=== PATIENT | male | born 1950 | race Caucasian/White ===

== ENCOUNTER → 2019-10-06 10:16 | Outpatient (BNVA) | payer MEDICARE, SELFPAY | PROVIDERS: Family Provider Internal Medicine; PCP Internal Medicine; Visit Provider Nurse Practitioner | DX: M54.16 Radiculopathy, lumbar region (principal); M79.671 Pain in right foot; F17.210 Nicotine dependence, cigarettes, uncomplicated; Z79.891 Long term (current) use of opiate analgesic | CPT/HCPCS: 99213; 99214 ==

== ENCOUNTER → 2020-04-14 08:18 | Outpatient (BNVA) | payer MEDICARE, SELFPAY | PROVIDERS: Family Provider Internal Medicine; PCP Internal Medicine; Visit Provider Anesthesiology | DX: G89.29 Other chronic pain (principal); M54.42 Lumbago with sciatica, left side; M54.41 Lumbago with sciatica, right side; M54.16 Radiculopathy, lumbar region; M54.9 Dorsalgia, unspecified; M43.16 Spondylolisthesis, lumbar region; Z71.6 Tobacco abuse counseling; F17.210 Nicotine dependence, cigarettes, uncomplicated; Z79.891 Long term (current) use of opiate analgesic | CPT/HCPCS: 99214 ==

== ENCOUNTER → 2020-06-13 08:01 | Outpatient (BNVA) | payer MEDICARE, SELFPAY | PROVIDERS: Family Provider Internal Medicine; PCP Internal Medicine; Visit Provider Anesthesiology | DX: G89.29 Other chronic pain (principal); M54.16 Radiculopathy, lumbar region; M43.16 Spondylolisthesis, lumbar region; M54.9 Dorsalgia, unspecified; F17.210 Nicotine dependence, cigarettes, uncomplicated; Z79.891 Long term (current) use of opiate analgesic; Z71.6 Tobacco abuse counseling | CPT/HCPCS: 99214 ==

== ENCOUNTER → 2020-08-09 09:03 | Outpatient (BNVA) | payer MEDICARE, SELFPAY | PROVIDERS: Family Provider Internal Medicine; PCP Internal Medicine; Visit Provider Anesthesiology | DX: G89.29 Other chronic pain (principal); M54.16 Radiculopathy, lumbar region; M43.16 Spondylolisthesis, lumbar region; M54.9 Dorsalgia, unspecified; F17.210 Nicotine dependence, cigarettes, uncomplicated; Z71.6 Tobacco abuse counseling; Z79.891 Long term (current) use of opiate analgesic | CPT/HCPCS: 99213; 99214 ==

== ENCOUNTER → 2020-10-11 08:15 | Outpatient (BNVA) | payer MEDICARE, SELFPAY | PROVIDERS: Family Provider Internal Medicine; PCP Internal Medicine; Visit Provider Anesthesiology | DX: G89.29 Other chronic pain (principal); M54.16 Radiculopathy, lumbar region; M43.16 Spondylolisthesis, lumbar region; M54.9 Dorsalgia, unspecified; F17.290 Nicotine dependence, other tobacco product, uncomplicated; Z79.891 Long term (current) use of opiate analgesic | CPT/HCPCS: 99213 ==

== ENCOUNTER → 2020-11-30 09:43 | Outpatient (BNVA) | payer MEDICARE, SELFPAY | PROVIDERS: Family Provider Internal Medicine; PCP Internal Medicine; Visit Provider Nurse Practitioner | DX: G89.29 Other chronic pain (principal); M54.16 Radiculopathy, lumbar region; M43.16 Spondylolisthesis, lumbar region; G47.00 Insomnia, unspecified; F17.210 Nicotine dependence, cigarettes, uncomplicated; Z79.891 Long term (current) use of opiate analgesic | CPT/HCPCS: 99213 ==

== ENCOUNTER 2021-01-11 11:23 | Outpatient (CLI) | payer MEDICARE, SELFPAY ==
--- NOTE | 2021-01-11 11:29 | XR_ITS ---
WS: [id number] KUB, AP view, 01/11/2021 Clinical Data: LOW BACK PAIN Comparison: KUB, 01/03/2016. Findings: No abnormal intraabdominal masses or calcifications are seen. There is no dilatated small bowel or ev idence of obstruction. There is air in the small bowel and the colon. There are clips in the right upper quadrant from a cho lecystectomy. There are phleboliths on the right side of the true pelvis. There is an old L2 compress ion fracture. XR/XR KUB [id number] Impression: Moderate generalized ileus.
== END 2021-01-11 11:24 | disposition home or self-care (01) ==
PROVIDERS: PCP Internal Medicine; Visit Provider Nurse Practitioner Family
DX: R39.9 Unspecified symptoms and signs involving the genitourinary system (principal); M54.5 Low back pain; K56.7 Ileus, unspecified
CPT/HCPCS: 74018

== ENCOUNTER 2021-01-22 08:24 | Outpatient (CLI) | payer MEDICARE, SELFPAY ==
--- NOTE | 2021-01-22 08:32 | CT_ITS ---
WS: [id number] CT ABDOMEN AND PELVIS NONCONTRAST HISTORY: ILEUS TECHNIQUE: Imaging performed through the abdomen and pelvis. Coronal and sagittal reformats are submi tted. All CT scans at [facility] use at least one of these dose optimization techniques: automated exposure control; mA and/or kV adjustment per patient size (includes targeted exams where d ose is matched to clinical indication); or iterative reconstruction. DLP: 874.64 mGycm COMPARISON: 12/16/2018 Lower thorax: Lung bases are clear. Visualized heart is normal. No hiatal hernia. Liver: Normal size liver. No mass or bile duct dilatation. Gallbladder: Prior cholecystectomy. Pancreas: Mild diffuse pancreatic atrophy. Normal size duct. No mass or pancreatitis. Spleen: Normal size spleen with granulomata. Adrenal glands: Normal. No mass. Right kidney: Normal size kidney. No obstruction identified. Mild perinephric stranding. Exophytic 17 mm mass from the mid lateral kidney slightly increased in size since 2019. Cannot be further evaluat ed on this nonenhanced study. There were additional mass is associated with the RIGHT kidney on a yolette or contrast evaluation but these are not as well seen today. Left kidney: Scattered cortical masses in the lower pole. Seen on the prior study without significant increase in size. Mild perinephric stranding. Aorta: Mild atherosclerosis abdominal aorta with no aneurysm. Atherosclerotic plaque extends into the common iliac arteries. No free fluid, intraperitoneal air or significant lymphadenopathy. GI tract: No obstruction. No evidence for an ileus. There are numerous diverticula in the sigmoid col on. No acute inflammation. No abscess or free fluid. No free air. Normal appendix. Abdominal wall: Negative. No hernia. Pelvis: Mild prostate gland enlargement. Urinary bladder is only minimally distended. No adenopathy o r free fluid. Osseous structures: Remote L2 compression fracture by 30%. Severe narrowing of the L1-2 disc space. L 5 anterolisthesis by 4 mm[address] is [address]. [address]/CT abdomen pelvis wo con [id number] IMPRESSION: 1. No evidence for ileus or GI tract obstruction. 2. Prior cholecystectomy. 3. Bilateral renal masses cannot be further evaluated without IV contrast but very similar in size to the prior study of 12/16/2018. 4. Sigmoid diverticulosis without diverticulitis. 5. Remote L2 compression fracture.
[2021-01-22] MEDS: iohexol 300 mg/mL 50 mL Btl PO (08:34)
== END 2021-01-22 08:25 | disposition home or self-care (01) ==
PROVIDERS: PCP Internal Medicine; Visit Provider Nurse Practitioner Family
DX: K56.7 Ileus, unspecified (principal); S32.029A Unspecified fracture of second lumbar vertebra, initial encounter for closed fracture; X58.XXXA Exposure to other specified factors, initial encounter; K57.30 Diverticulosis of large intestine without perforation or abscess without bleeding; N28.89 Other specified disorders of kidney and ureter; Z90.49 Acquired absence of other specified parts of digestive tract
CPT/HCPCS: 74176; Q9967

== ENCOUNTER 2021-02-02 09:54 | Outpatient (CLI) | payer MEDICARE, SELFPAY ==
--- NOTE | 2021-02-02 10:05 | CT_ITS ---
WS: [id number] CT ABDOMEN AND PELVIS NONCONTRAST HISTORY: ILEUS TECHNIQUE: Imaging performed through the abdomen and pelvis. Coronal and sagittal reformats are submi tted. All CT scans at [facility] use at least one of these dose optimization techniques: automated exposure control; mA and/or kV adjustment per patient size (includes targeted exams where d ose is matched to clinical indication); or iterative reconstruction. DLP: 959.2 mGycm COMPARISON: 01/22/2021 and 12/16/2018 Lower thorax: Lung bases are clear. Visualized heart is normal. No hiatal hernia. Liver: Normal size liver. No mass or bile duct dilatation. Gallbladder: Prior cholecystectomy. Pancreas: Mild fatty replacement. Spleen: Normal. Adrenal glands: Normal. No mass. Right kidney: Mild perinephric stranding with no obstruction. Stable appearance of the masses extendi ng exophytic from the kidney. Left kidney: Mild perinephric stranding. No obstruction. No change in the exophytic masses. Aorta: Mild atherosclerosis abdominal aorta with no aneurysm. No free fluid, intraperitoneal air or significant lymphadenopathy. GI tract: No GI tract obstruction. No ileus identified. No evidence for appendicitis. There are numer ous diverticula mild wall thickening. The sigmoid colon. No definite diverticulitis. Abdominal wall: Negative. No hernia. Pelvis: No free fluid or adenopathy. Inguinal canals are patent bilaterally. Mild enlargement of the prostate gland. Osseous structures: Remote L2 compression fracture. Severe disc space narrowing at L1-2. L5 anterolis thesis. No change in appearance of the spine. Mild narrowing of the joint spaces of the hips. CT/CT abdomen pelvis wo con [id number] IMPRESSION: 1. No ileus. 2. Sigmoid diverticulosis and wall thickening. Mild chronic narrowing of the s igmoid lumen. No evidence for acute diverticulitis. 3. Perinephric stranding with no change in appearance of the renal masses. 4. Prior cholecystectomy.
[2021-02-02] MEDS: iohexol 300 mg/mL 50 mL Btl PO (11:16)
== END 2021-02-02 09:55 | disposition home or self-care (01) ==
LOC: RADWPI 09:57
PROVIDERS: PCP Internal Medicine; Visit Provider Nurse Practitioner Family
DX: K56.7 Ileus, unspecified (principal); K57.30 Diverticulosis of large intestine without perforation or abscess without bleeding; Z90.49 Acquired absence of other specified parts of digestive tract
CPT/HCPCS: 74176; Q9967

== ENCOUNTER → 2021-02-06 09:25 | Outpatient (BNVA) | payer MEDICARE, SELFPAY | PROVIDERS: PCP Internal Medicine; Visit Provider Anesthesiology | DX: G89.29 Other chronic pain (principal); M54.16 Radiculopathy, lumbar region; M43.16 Spondylolisthesis, lumbar region; M54.9 Dorsalgia, unspecified; F17.210 Nicotine dependence, cigarettes, uncomplicated; Z79.891 Long term (current) use of opiate analgesic | CPT/HCPCS: 99213 ==

== ENCOUNTER → 2021-02-16 10:20 | Outpatient (BNVA) | payer MEDICARE, SELFPAY | PROVIDERS: PCP Internal Medicine; Referring Provider Nurse Practitioner Family; Visit Provider Urology | DX: R97.20 Elevated prostate specific antigen [PSA] (principal); N40.1 Benign prostatic hyperplasia with lower urinary tract symptoms; N40.0 Benign prostatic hyperplasia without lower urinary tract symptoms; R30.0 Dysuria | CPT/HCPCS: 81003; 84153 ==

== ENCOUNTER 2021-02-21 08:54 | Outpatient (CLI) | payer MEDICARE, SELFPAY ==
--- NOTE | 2021-02-21 09:00 | US_ITS ---
WS: [id number] RENAL ULTRASOUND HISTORY: RENAL MASS COMPARISON: 09/26/[address] 02/02/2021 TECHNIQUE: 2-D and color Doppler imaging of the kidney submitted. Right kidney: 10.6 cm x 6.5 cm x 7.5 cm. Normal size kidney. No cortical thinning. No solid mass identified. There are several cysts associate d with the lower pole of the RIGHT kidney. The largest measures 2.1 x 1.8 x 1.9 cm. This compares in size and location to the enhanced CT from 12/16/2018. Left kidney: 14.1 cm x 5.3 cm x 6.3 cm. Normal size kidney with no cortical thinning or hydronephrosis. There are several scattered small cys ts within the renal parenchyma. No solid mass identified. Largest cyst is exophytic from the mid kidn ey measuring 1.6 x 1.0 x 1.3 cm. Aorta: Normal. Urinary Bladder: Normal distention. Prostate gland is enlarged encroaching into the urinary bladder. Prostate measures 3.8 x 5.0 x 4.1 cm . US/US renal BI* [id number] IMPRESSION: 1. Bilateral renal cysts with no solid mass identified. Very similar in appear ance to the prior CT from 12/16/2018. 2. Enlarged prostate gland.
== END 2021-02-21 08:55 | disposition home or self-care (01) ==
LOC: RAD 08:58
PROVIDERS: PCP Internal Medicine; Visit Provider Internal Medicine
DX: N28.89 Other specified disorders of kidney and ureter (principal); N40.0 Benign prostatic hyperplasia without lower urinary tract symptoms; Q61.02 Congenital multiple renal cysts
CPT/HCPCS: 76770

== ENCOUNTER → 2021-04-05 09:24 | Outpatient (BNVA) | payer MEDICARE, SELFPAY | PROVIDERS: PCP Internal Medicine; Visit Provider Anesthesiology | DX: G89.29 Other chronic pain (principal); M54.16 Radiculopathy, lumbar region; M43.16 Spondylolisthesis, lumbar region; F17.290 Nicotine dependence, other tobacco product, uncomplicated; Z79.891 Long term (current) use of opiate analgesic | CPT/HCPCS: 99213 ==

== ENCOUNTER 2021-04-23 06:24 | Emergency (ER) | payer MEDICARE, SELFPAY ==
[2021-04-23 06:37] VITALS: BP 167/110; PULSE 119; RESP 18; TEMP 36.6; O2SAT 97; BMI 27.6
[2021-04-23 06:42] VITALS: BP 129/86; PULSE 113; O2SAT 96
[2021-04-23 07:12] VITALS: BP 129/86; PULSE 111; O2SAT 96
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
[2021-04-23 07:50] LABS: Basophils % 0.5 %; Eosinophils % 0.5 %; Hematocrit 46.8 % (42.0-52.0); Hemoglobin 15.8 g/dL (11.7-16.6); Lymphocytes # 1.7 10^3/uL (0.8-4.8); Lymphocytes % 25.3 %; Mean Corpuscular HGB Conc 33.8 g/dL (30.0-36.0); Mean Corpuscular Hemoglobin 30.3 pg (28.0-34.0); Mean Corpuscular Volume 89.8 fl (80-94); Mean Platelet Volume 9.1 fL (7.4-10.4); Monocytes # 0.5 10^3/uL (0.2-0.9); Neutrophils # 4.35 10^3/uL (1.8-7.7); Neutrophils % 65.2 %; Nucleated Red Blood Cells % 0 %; Platelet Count 207 10^3/cmm (130-400); Red Blood Count 5.21 10^6/uL (4.1-5.3); Red Cell Distribution Width 12.4 % (12.1-15.1); White Blood Count 6.7 10^3/uL (4.0-10.0)
[2021-04-23 08:01] VITALS: BP 139/94; PULSE 96; O2SAT 94
[2021-04-23 08:08] LABS: Alanine Aminotransferase 13 U/L (0-41); Albumin Level 4.2 g/dL (3.5-5.2); Alkaline Phosphatase 108 IU/L (40-130); Anion Gap 13.2 (5-19); Aspartate Amino Transferase 15 U/L (0-40); Blood Urea Nitrogen 11 mg/dL (8-23); Calcium 9.2 mg/dL (8.5-10.5); Carbon Dioxide 26 mmol/L (22-29); Chloride 104 mmol/L (98-107); Globulin 2.6 g/dL (1.3-4.6); Glucose 115 mg/dL (65-115); Lipase 17 U/L (13-60); Osmolality Calculated 290 mOsm/kg (285-295); Potassium 3.2 mmol/L (3.5-5.1); Sodium 140 mmol/L (136-145); Total Bilirubin 0.7 mg/dL (0.15-1.2); Total Protein 6.8 g/dL (6.6-8.7)
[2021-04-23 08:25] LABS: Add Urine Microscopic? YES; Bilirubin Urine Neg (Negative); Blood Urine Trace (Negative); Glucose Urine UA Norm (Normal); Ketones Urine Negative (Negative); Leukocyte Esterase Urine Negative (Negative); Nitrate Urine Negative (Negative); Protein Urine Neg (Negative); Urine Appearance Clear (CLEAR); Urine Color Yellow (Yellow); Urobilinogen Urine Norm (Negative); pH Urine 5 (5-7)
[2021-04-23 08:26] LABS: Add Urine Culture? No; Bacteria Urine TRACE /hpf; Mucus Urine 1+ /hpf; RBC Urine RARE /hpf (0-2)
[2021-04-23 08:56] VITALS: BP 170/119; PULSE 97; O2SAT 98
== END 2021-04-23 08:59 | disposition home or self-care (01) ==
PROVIDERS: Emergency Provider Family Medicine
DX: K57.92 Diverticulitis of intestine, part unspecified, without perforation or abscess without bleeding (principal); I10 Essential (primary) hypertension; F17.290 Nicotine dependence, other tobacco product, uncomplicated
CPT/HCPCS: 80053; 81001; 83690; 85025; 99282

== ENCOUNTER → 2021-04-27 14:15 | Outpatient (BNVA) | payer MEDICARE, SELFPAY | PROVIDERS: PCP Internal Medicine; Visit Provider Anesthesiology | DX: G89.29 Other chronic pain (principal); M54.16 Radiculopathy, lumbar region; M43.16 Spondylolisthesis, lumbar region; F17.210 Nicotine dependence, cigarettes, uncomplicated; Z79.891 Long term (current) use of opiate analgesic | CPT/HCPCS: 99213 ==

== ENCOUNTER → 2021-07-04 08:41 | Outpatient (BNVA) | payer MEDICARE, SELFPAY | PROVIDERS: PCP Internal Medicine; Visit Provider Anesthesiology | DX: G89.29 Other chronic pain (principal); M54.16 Radiculopathy, lumbar region; M43.16 Spondylolisthesis, lumbar region; Z79.891 Long term (current) use of opiate analgesic; Z87.891 Personal history of nicotine dependence | CPT/HCPCS: 99213 ==

== ENCOUNTER → 2021-08-09 12:30 | Outpatient (BNVA) | payer MEDICARE, SELFPAY | PROVIDERS: PCP Internal Medicine; Visit Provider Nurse Practitioner Family | DX: Z20.822 Contact with and (suspected) exposure to COVID-19 (principal) | CPT/HCPCS: 87426; 87635 ==

== ENCOUNTER 2021-08-14 07:57 | Outpatient (CLI) | payer MEDICARE, SELFPAY ==
[2021-08-14 08:07] VITALS: BMI 28.8
[2021-08-14 08:20] VITALS: BP 142/93; PULSE 92; RESP 18; TEMP 38; O2SAT 93
[2021-08-14 09:25] VITALS: BP 141/92; PULSE 83; RESP 18; TEMP 36.9; O2SAT 92
[2021-08-14 10:24] VITALS: BP 136/83; PULSE 82; RESP 18; TEMP 36.9; O2SAT 91
== END 2021-08-14 07:58 | disposition home or self-care (01) ==
LOC: OPS 08:02
PROVIDERS: PCP Internal Medicine; Visit Provider Nurse Practitioner Family
DX: U07.1 COVID-19 (principal)
CPT/HCPCS: 96365

== ENCOUNTER 2021-08-16 13:23 | Outpatient (CLI) | payer MEDICARE, SELFPAY ==
--- NOTE | 2021-08-16 13:41 | XRR_ITS ---
PROCEDURE INFORMATION: Exam: XR Chest Exam date and time: 08/16/2021 1:41 PM Age: 70 years old Clinical indication: Cough; Prior surgery; Surgery type: Gb; Patient HX: Covid +, still in quarantine. Bronchitits, infusion x 2 days TECHNIQUE: Imaging protocol: XR of the chest. Views: 2 views. COMPARISON: CT Chest/Abdomen/Pelvis w IV* 12/16/2018 4:29 PM FINDINGS: Lungs: Emphysematous changes. Patchy bilateral mid to lower lung field atelectasis versus minimal infiltrate. Pleural spaces: Unremarkable. No pleural effusion. No pneumothorax. Heart/Mediastinum: Unremarkable. No cardiomegaly. Bones/joints: Unremarkable. XR/XR chest 2V* [id number] IMPRESSION: 1. Emphysematous changes. 2. Patchy bilateral mid to lower lung field atelectasis versus minimal infiltrate.
== END 2021-08-16 13:24 | disposition home or self-care (01) ==
PROVIDERS: PCP Internal Medicine; Visit Provider Nurse Practitioner Family
DX: R05.9 Cough, unspecified (principal); U07.1 COVID-19
CPT/HCPCS: 71046

== ENCOUNTER → 2021-09-05 08:15 | Outpatient (BNVA) | payer MEDICARE, SELFPAY | PROVIDERS: PCP Internal Medicine; Visit Provider Anesthesiology | DX: G89.29 Other chronic pain (principal); M54.16 Radiculopathy, lumbar region; M43.16 Spondylolisthesis, lumbar region; F17.290 Nicotine dependence, other tobacco product, uncomplicated; Z79.891 Long term (current) use of opiate analgesic | CPT/HCPCS: 99214 ==

== ENCOUNTER → 2021-09-13 14:22 | Outpatient (BNVA) | payer MEDICARE, SELFPAY | PROVIDERS: PCP Internal Medicine; Visit Provider Nurse Practitioner Family | DX: Z20.822 Contact with and (suspected) exposure to COVID-19 (principal) | CPT/HCPCS: 87635 ==

== ENCOUNTER 2022-11-15 03:49 | Emergency (ER) | payer MEDICARE, SELFPAY ==
[2022-11-15 03:53] VITALS: BP 183/100; PULSE 116; RESP 20; TEMP 36.8; O2SAT 97; BMI 28.8
[2022-11-15 03:57] VITALS: BP 150/105; PULSE 86; RESP 13; O2SAT 91
--- NOTE | 2022-11-15 03:57 | ECG_ITS ---
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
--- NOTE | 2022-11-15 04:01 | CTR_ITS ---
PROCEDURE INFORMATION: Exam: CT Abdomen And Pelvis Without Contrast Exam date and time: 11/15/2022 4:13 AM Age: 72 years old Clinical indication: Abdominal pain; Generalized; Prior surgery; Surgery type: Gb; Patient HX: Worsening diffuse abd pain over last four days. TECHNIQUE: Imaging protocol: Computed tomography of the abdomen and pelvis without contrast. Radiation optimization: All CT scans at this facility use at least one of these dose optimization techniques: automated exposure control; mA and/or kV adjustment per patient size (includes targeted exams where dose is matched to clinical indication); or iterative reconstruction. REPORTING DATA: Count of CT and Cardiac NM exams in prior 12 months: This patient has received 0 known CTs and 0 known cardiac nuclear medicine studies in the 12 months prior to the current study. COMPARISON: CT abdomen pelvis wo con [id number] 02/02/2021 11:37 AM RADIATION DOSE METRICS: Total DLP (mGy-cm): 878.93 FINDINGS: Liver: No focal intrahepatic lesions are seen. Gallbladder and bile ducts: The gallbladder has been removed. Pancreas: Moderately atrophic/fatty replaced. No intraparenchymal lesions are seen. No ductal dilation. Spleen: No intraparenchymal lesions are seen. No splenomegaly. Adrenal glands: Normal. No mass. Kidneys and ureters: The kidneys are mildly atrophic in there is mild nonspecific perinephric fat stranding. Bilateral low attenuating cystic structures measuring up to 1.9 cm on the right and 2.3 cm on the left likely represent benign cysts. Left renal exophytic intermediate attenuating lesion on series 3, image 48 measuring up to 1.5 cm in diameter likely represents a benign complex cyst however is incompletely and suboptimally evaluated on this noncontrast exam. No hydronephrosis. Stomach and bowel: No pathologic bowel dilatation. No obstruction. Colonic diverticula, subtle/minimal pericolonic induration/stranding in the right lower quadrant, cannot exclude early changes of diverticulitis. Appendix: No evidence of appendicitis. Intraperitoneal space: No free air. No abnormal walled-off fluid collection. Vasculature: Atheromatous changes within the visualized portion of the aorta and its major branching vessels are within normal limits of variation for the patient's age. No abdominal aortic aneurysm. Lymph nodes: No pathologically enlarged lymph nodes. Urinary bladder: Unremarkable as visualized. Reproductive: Unremarkable as visualized. Bones/joints: No acute fracture. Moderate degenerative changes of the partially imaged spine with sequelae of remote insult/trauma involving the L1 and L2 vertebral bodies. Soft tissues: Small bilateral fat containing inguinal hernias. Well-circumscribed low attenuating lesion within the subcutaneous tissues of the posterior lower thorax on series 3, image 12 measuring up to approximately 3.5 cm x 2.5 cm x 4.0 cm, finding is most compatible with a benign sebaceous cyst. Very small fat containing umbilical hernia. CT/CT abdomen pelvis wo con [id number] IMPRESSION: 1. For colonic diverticula, subtle/minimal pericolonic induration/stranding in the right lower quadrant, cannot exclude early changes of diverticulitis. 2. Other multiple chronic/incidental findings as described above.
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
[2022-11-15 04:19] LABS: Basophils % 0.3 %; Eosinophils # 0.1 10^3/uL (0.0-0.8); Eosinophils % 0.6 %; Hematocrit 48.4 % (42.0-52.0); Hemoglobin 16.2 g/dL (11.7-16.6); Lymphocytes # 3.5 10^3/uL (0.8-4.8); Lymphocytes % 38.2 %; Mean Corpuscular HGB Conc 33.5 g/dL (30.0-36.0); Mean Corpuscular Volume 89.6 fl (80-94); Mean Platelet Volume 9.5 fL (7.4-10.4); Monocytes # 0.8 10^3/uL (0.2-0.9); Monocytes % 8.6 %; Neutrophils # 4.71 10^3/uL (1.8-7.7); Neutrophils % 52.1 %; Nucleated Red Blood Cells % 0 %; Platelet Count 203 10^3/cmm (130-400); Red Cell Distribution Width 12.6 % (12.1-15.1); White Blood Count 9.1 10^3/uL (4.0-10.0)
[2022-11-15 04:39] LABS: Alanine Aminotransferase 12 U/L (0-41); Albumin Level 4.1 g/dL (3.5-5.2); Alkaline Phosphatase 93 U/L (40-130); Aspartate Amino Transferase 20 U/L (0-40); Blood Urea Nitrogen 12 mg/dL (8-23); Calcium 9.4 mg/dL (8.5-10.5); Carbon Dioxide 24 mmol/L (22-29); Chloride 107 mmol/L (98-107); Globulin 3.1 g/dL (1.3-4.6); Glucose 128 mg/dL (65-115); Lipase 24 U/L (13-60); Osmolality Calculated 303 mOsm/kg (285-295); Sodium 146 mmol/L (136-145); Total Bilirubin 0.8 mg/dL (0.15-1.2); Total Protein 7.2 g/dL (6.6-8.7)
[2022-11-15 04:39] LABS: Glucose Point of Care 122 mg/dL (70-110)
[2022-11-15 04:41] LABS: Anion Gap 18.2 (5-19); Potassium 3.2 mmol/L (3.5-5.1)
[2022-11-15] MEDS: sodium chloride 0.9% 1,000 ML 999 ML IV (04:41)
[2022-11-15 06:27] VITALS: BP 178/119; PULSE 97; RESP 14; O2SAT 95
--- NOTE | 2022-11-15 07:03 | PC.NURSE ---
WHILE AT BEDSIDE PT IS RESTING IN BED IN NAD. PT IS AWAKE ALERT AND ANSWERING QUESTIONS APPROPRIATELY. PT DOES NOT VERBALIZE ANY NEEDS.
[2022-11-15 07:06] VITALS: BP 188/122; PULSE 92; RESP 14; O2SAT 93
[2022-11-15 08:14] VITALS: BP 163/108; PULSE 98; RESP 16; O2SAT 91
[2022-11-15 08:14] LABS: Add Urine Microscopic? NO; Charge for UA Resulting for Rev
[2022-11-15 08:52] LABS: Urine Appearance Clear (CLEAR); Urine Color Yellow (Yellow); pH Urine 5 (5-7)
[2022-11-15 08:53] LABS: Bilirubin Urine Neg (Negative); Blood Urine Neg (Negative); Glucose Urine UA Norm (Normal); Ketones Urine 2+ (Negative); Leukocyte Esterase Urine Negative (Negative); Nitrate Urine Negative (Negative); Protein Urine Neg (Negative); Specific Gravity, Urine 1.025 (1.005-1.030); Urobilinogen Urine Norm (Negative)
== END 2022-11-15 08:15 | disposition home or self-care (01) ==
PROVIDERS: Emergency Medicine; Emergency Provider Family Medicine; PCP Internal Medicine
DX: K57.92 Diverticulitis of intestine, part unspecified, without perforation or abscess without bleeding (principal); I10 Essential (primary) hypertension; F17.210 Nicotine dependence, cigarettes, uncomplicated
CPT/HCPCS: 36416; 74176; 80053; 81003; 82962; 83690; 85025; 93005; 96360; 96361; 99285; J7030

== ENCOUNTER → 2023-06-03 07:47 | Outpatient (BNVA) | payer MEDICARE, SELFPAY | PROVIDERS: PCP Internal Medicine; Visit Provider Surgery | DX: L98.9 Disorder of the skin and subcutaneous tissue, unspecified (principal) | CPT/HCPCS: 99203 ==

== ENCOUNTER 2023-07-28 05:33 | Day surgery (SDC) | payer MEDICARE, SELFPAY ==
[2023-07-28] VITALS (9 sets, daily range): BP systolic 114–164; BP diastolic 74–98; PULSE 58–94; RESP 12–18; TEMP 36.2–36.8; O2SAT 91–96; BMI 28.8
[2023-07-28] MEDS: sodium chloride 0.9% 1,000 ML 30 ML IV (06:44)
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
[2023-07-28] MEDS: ceFAZolin 2,000 MG in sodium chloride 0.9% (plus) 50 ML 100 MG IV (07:02)
[2023-07-28] MEDS: lidocaine-epi 2% 20 mL INJ INJECTION (07:18)
[2023-07-28] MEDS: neomycin-poly-bacitracin oint 28 gm 1 APPLIC TOPICAL (07:42)
--- NOTE | 2023-07-28 07:43 | P.OP_ITS ---
Operative Report Date of procedure: July 28, 2023 Pre-op diagnosis: Right groin skin lesion Post-op diagnosis: same Procedure done: Excision of right groin skin lesion Implants: none Specimens removed/disposition: Elliptical excision of right groin skin lesion Surgeon: Sae Kumar DO Anesthesia: General and Local Estimated blood loss (mL): 5 Complications: None apparent Brief History: This is a very pleasant 72-year-old gentleman with an enlarging skin lesion of his right groin causing pain and itching. He desired excision. The risk and benefits were explained and documented. Procedure: Patient was wheeled operative room placed on the OR table in the supine position. The right groin was inspected prepped and draped in usual sterile fashion. A timeout was performed. All present were in agreement. 2% lidocaine with epinephrine was used to anesthetize the skin around the lesion of the right groin. The lesion measured 9 cm in greatest diameter and was raised and brown. An elliptical excision measuring 10 cm in length was performed over the mass using a 10 blade scalpel. Dissection was carried down through the dermis with electrocautery. The lesion was then removed with electrocautery. Hemostasis achieved electrocautery. The dermis was approximated with 3-0 Vicryl in an interrupted fashion. Skin was closed with 3-0 nylon in a simple interrupted and running fashion. Sterile bandage was applied. Patient tolerated procedure yobani vee
--- NOTE | 2023-07-28 08:50 | ANE.PACU2 ---
Inpatient post-anesthesia follow up: Airway intact: Yes Vital signs: Temperature 97.3 F Pulse Rate 73 Respiratory Rate 18 Blood Pressure 149/86 Pulse Oximetry 93 Oxygen Delivery Me thod Room Air Oxygen Flow Rate Fraction of Inspir ed Oxygen Hydration adequate: Yes Nausea and vomiting: No Pain level: 1 Mental status: Baseline
== END 2023-07-28 08:52 | disposition home or self-care (01) ==
PROVIDERS: PCP Internal Medicine; Visit Provider Surgery
PROC: (CPT 11406; principal; 2023-07-28 07:00)
DX: L82.1 Other seborrheic keratosis (principal); I10 Essential (primary) hypertension; K21.9 Gastro-esophageal reflux disease without esophagitis; N40.1 Benign prostatic hyperplasia with lower urinary tract symptoms; N13.8 Other obstructive and reflux uropathy; Z79.891 Long term (current) use of opiate analgesic; F17.200 Nicotine dependence, unspecified, uncomplicated
CPT/HCPCS: 11406; 12034; 88304; J0690; J1100; J2405; J2704; J3010; J7030

== ENCOUNTER → 2023-08-12 11:21 | Outpatient (BNVA) | payer MEDICARE, SELFPAY | PROVIDERS: PCP Internal Medicine; Visit Provider Surgery | DX: Z98.890 Other specified postprocedural states (principal); Z87.2 Personal history of diseases of the skin and subcutaneous tissue | CPT/HCPCS: 99213 ==

== ENCOUNTER → 2024-12-08 12:41 | Outpatient (BNVA) | payer MEDICARE, SELFPAY | PROVIDERS: PCP Internal Medicine; Visit Provider Dermatology | DX: C44.619 Basal cell carcinoma of skin of left upper limb, including shoulder (principal); L72.0 Epidermal cyst; L82.1 Other seborrheic keratosis; D23.4 Other benign neoplasm of skin of scalp and neck; Z08 Encounter for follow-up examination after completed treatment for malignant neoplasm | CPT/HCPCS: 11102; 17000; 99203 ==

== ENCOUNTER → 2025-05-16 08:22 | Outpatient (BNVA) | payer MEDICARE, SELFPAY | PROVIDERS: PCP Internal Medicine; Visit Provider Dermatology | DX: C44.91 Basal cell carcinoma of skin, unspecified (principal); L21.8 Other seborrheic dermatitis; L82.1 Other seborrheic keratosis; L72.0 Epidermal cyst; D23.4 Other benign neoplasm of skin of scalp and neck; Z08 Encounter for follow-up examination after completed treatment for malignant neoplasm; Z85.828 Personal history of other malignant neoplasm of skin | CPT/HCPCS: 99214 ==

== ENCOUNTER → 2025-05-25 11:18 | Outpatient (BNVA) | payer MEDICARE, SELFPAY | PROVIDERS: PCP Internal Medicine; Visit Provider Dermatology | DX: C44.619 Basal cell carcinoma of skin of left upper limb, including shoulder (principal) | CPT/HCPCS: 11602; 13121 ==

== ENCOUNTER 2025-06-23 14:30 | Emergency (ER) | payer MEDICARE, SELFPAY ==
[2025-06-23 14:35] VITALS: BP 204/109; PULSE 68; RESP 18; O2SAT 97
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
[2025-06-23 14:47] VITALS: BP 200/109; PULSE 70; O2SAT 97
[2025-06-23] MEDS: tetanus-dipt-pertussis 0.5 mL SDV IM (15:01)
[2025-06-23] MEDS: lidocaine-epi 1% 20 mL INJ INJECTION (15:02)
[2025-06-23 15:04] VITALS: BP 163/108; PULSE 68; O2SAT 97
--- NOTE | 2025-06-23 15:04 | PC.NURSE ---
Lidocaine handed to Dr. Campos.
[2025-06-23 15:16] VITALS: BP 163/100; PULSE 78; O2SAT 97
== END 2025-06-23 15:17 | disposition home or self-care (01) ==
PROVIDERS: Emergency Provider Emergency Medicine; PCP Internal Medicine
DX: S41.141A Puncture wound with foreign body of right upper arm, initial encounter (principal); W45.3XXA Fishing hook entering through skin, initial encounter; F17.290 Nicotine dependence, other tobacco product, uncomplicated; I10 Essential (primary) hypertension
CPT/HCPCS: 90715; 99283; J9999